=== PATIENT | male | born 1960 | race Caucasian/White ===

== ENCOUNTER 2017-11-04 14:16 | Emergency (ER) | payer SELFPAY ==
[~2017-11-04] VITALS: Ht 180.3 cm; Wt 111.4 kg
[2017-11-04 14:17] VITALS: TEMP 97.2
[2017-11-04] MEDS ORDERED: HUMALOG100 U/ML SQ ×2 (14:38→14:39)
[2017-11-04] MEDS ORDERED: LEVEMIR SQ (14:38)
[2017-11-04 16:07] LABS: COLLECTION METHOD CLEAN CATCH
[2017-11-04 16:21] LABS: MUCOUS Present /lpf; PH 5 (5-8); SQUAMOUS EPITHELIAL 0-2 /hpf; URINE APPEARANCE Hazy; URINE BACTERIA Rare /hpf; URINE BILIRUBIN Negative (NEGATIVE); URINE BLOOD 2+ (NEGATIVE); URINE COLOR Amber; URINE GLUCOSE Negative (NEGATIVE); URINE KETONE Negative (NEGATIVE); URINE LEUKOCYTE ESTERASE Negative (NEGATIVE); URINE NITRATE Negative (NEGATIVE); URINE PROTEIN(semi-quant) 3+ (NEGATIVE); URINE UROBILINOGEN Negative (NEGATIVE)
[2017-11-04] MEDS ORDERED: NORCO 325 MG-51 TAB PO (16:55)
[2017-11-04] MEDS ORDERED: FLEXERIL 1010 MG/TAB PO (16:55)
[2017-11-04 17:18] VITALS: BP 179/118; PULSE 100
[2017-11-04] MEDS ORDERED: PRINIVIL10 MG PO (17:18)
== END 2017-11-04 17:20 | disposition home or self-care (01) ==
LOC: COL.ER 14:16
DX: M54.5 Low back pain (principal); E11.9 Type 2 diabetes mellitus without complications; F17.210 Nicotine dependence, cigarettes, uncomplicated; Z79.4 Long term (current) use of insulin; Z88.2 Allergy status to sulfonamides
CPT/HCPCS: J2270; J2360

== ENCOUNTER 2017-11-22 13:35 | Emergency (ER) | payer SELFPAY ==
[~2017-11-22] VITALS: Ht 180.3 cm; Wt 109.1 kg
[~2017-11-22 13:35] MED LIST: FLEXERIL 1010 MG/TAB PO; HUMALOG100 U/ML SQ; LEVEMIR SQ; NORCO 325 MG-51 TAB PO; PRINIVIL10 MG PO
[2017-11-22 13:40] VITALS: TEMP 97.5
[2017-11-22 14:45] VITALS: BP 94/63; PULSE 66
== END 2017-11-22 14:52 | disposition home or self-care (01) ==
LOC: COL.ER 13:35
DX: G89.29 Other chronic pain (principal); M54.5 Low back pain; E10.9 Type 1 diabetes mellitus without complications; I10 Essential (primary) hypertension; E03.9 Hypothyroidism, unspecified; G62.9 Polyneuropathy, unspecified; F17.210 Nicotine dependence, cigarettes, uncomplicated; Z88.2 Allergy status to sulfonamides; Z88.5 Allergy status to narcotic agent; Z98.890 Other specified postprocedural states; Z79.4 Long term (current) use of insulin
CPT/HCPCS: J2360